=== PATIENT | male | born 1965 | race Caucasian/White ===

== ENCOUNTER 2022-08-06 05:34 | Day surgery (SDC) | payer OTHER ==
[~2022-08-06] VITALS: Ht 165.1 cm; Wt 127.1 kg
[~2022-08-06 05:34] MED LIST: AMLO-257 PO; ASPI-1450 PO; ASPIRIN 81 MG CHEWABLE TABLET ONE; ATOR40TA28 PO; DIAZEPAM 5 MG TABLET ONE; DOCU-385 PO; DiphenhydrAMINE HCL 50 MG CAPSULE ONE; ENAL2.5T16 PO; IBUP-2077 PO; METF-1211 PO; OMEG-135 PO; OMEP20 PO; POTA8TAB71 PO; SODIUM CHLORIDE 0.9% 1,000 ML IV ONE; SODIUM CHLORIDE 0.9% 1,000 ML ONE
[2022-08-06] MEDS ORDERED: SODIUM BICARBONATE 50 MEQ/50 ML VIAL ONE (07:05)
[2022-08-06] MEDS ORDERED: LIDOCAINE/PF 1% 30 ML VIAL ONE (07:05)
[2022-08-06] MEDS ORDERED: IOHEXOL 300 MG/ML 100 ML VIAL ONE (07:06)
[2022-08-06] MEDS ORDERED: HEPARIN SODIUM 1000 UNITS/NS 1,000 ML ONE (07:06)
[2022-08-06] MEDS ORDERED: DIAZEPAM 5 MG TABLET PO ONE (07:30)
[2022-08-06] MEDS ORDERED: DiphenhydrAMINE HCL 50 MG CAPSULE PO ONE (07:30)
[2022-08-06] MEDS ORDERED: ASPIRIN 81 MG CHEWABLE TABLET PO ONE (07:30)
[2022-08-06] MEDS ORDERED: FentaNYL CITRATE PF 100 MCG/2 ML VIAL ONE (07:38)
[2022-08-06] MEDS ORDERED: MIDAZOLAM HCL 2 MG/2 ML VIAL ONE (07:39)
[2022-08-06 07:45] VITALS: BP 169/93
[2022-08-06 07:56] LABS: GLUCOMETER DEV NAME(LOC) SDS.; GLUCOSE,POINT OF CARE 121 MG/DL (70-110)
[2022-08-06] MEDS ORDERED: LIDOCAINE 1% 30 ML/SOD BICARB 8.4% 4 ML SQ ONE (08:00)
[2022-08-06] MEDS ORDERED: HEPARIN SODIUM 1000 UNITS/NS 1,000 ML IARTER ONE (08:00)
[2022-08-06] MEDS ORDERED: IOHEXOL 300 MG/ML 100 ML VIAL IARTER ONE (08:00)
[2022-08-06] MEDS ORDERED: FentaNYL CITRATE PF 100 MCG/2 ML VIAL IVP ONE (08:00)
[2022-08-06] MEDS ORDERED: MIDAZOLAM HCL 2 MG/2 ML VIAL IVP ONE (08:00)
[2022-08-06] MEDS ORDERED: NITROGLYCERIN 50 MG/D5% WATER 250 ML ONE (08:12)
[2022-08-06] MEDS ORDERED: HEPARIN SODIUM,PORCINE 1,000 UNITS/ML 10 ML VIAL IVP ONE (08:15)
[2022-08-06 08:25] VITALS: BP 159/93
== END 2022-08-06 08:26 | disposition home or self-care (01) ==
LOC: CATHLAB 05:34
PROVIDERS: ATTEND Internal Medicine Interventional Cardiology
DX: R07.9 Chest pain, unspecified (principal); I25.10 Atherosclerotic heart disease of native coronary artery without angina pectoris; Z87.01 Personal history of pneumonia (recurrent); I10 Essential (primary) hypertension; Z98.890 Other specified postprocedural states; Z79.899 Other long term (current) drug therapy
CPT/HCPCS: 93454; 92978; 82962; 99152; 99153; 93005; C1757; C1887; C1760; J3010; J1644; J3490 ×3; J2250; J7030; Q9967; C1753; 75960